=== PATIENT | female | born 1940 | race Caucasian/White ===

== ENCOUNTER 2016-10-14 13:57 | Emergency (ER) | payer OTHER, MEDICARE ==
[~2016-10-14] VITALS: Ht 165.1 cm; Wt 65.3 kg
--- NOTE | 2016-10-14 14:11 | ED GENERAL ADULT ---
History of Present Illness General Chief Complaint: ETOH/Drug Related Complaint Stated Complaint: PT IS WITHDRAWNING FROM RX Source: patient, old records Exam Limitations: no limitations Vital Signs & Intake/Output Vital Signs & Intake/Output Vital Signs Date Time Temp Pulse Resp B/P Pulse O2 O2 Flow FiO2 Ox Delivery Rate 10/14 1617 97.0 72 16 111/54 94 Room Air 10/14 1401 98.1 94 16 124/84 98 Room Air Allergies Coded Allergies: codeine (Severe, "SICK" 10/14/16) tetracycline (Severe, RASH 10/14/16) Reconcile Medications Adalimumab (Humira Pen) 40 MG/0.8 ML PEN.IJ.KIT 1 SYR SC Q2W BONES (Reported) Aripiprazole (Abilify) 2 MG TABLET 1 TAB PO DAILY MOOD DISORDER (Reported) Atorvastatin Calcium (Lipitor) 10 MG TABLET 1 TAB PO DAILY CHOLESTEROL ( Reported) Buspirone HCl 5 MG TABLET 1 TAB PO TID ANXIETY (Reported) Gabapentin 600 MG TABLET 1 TAB PO DAILY NERVE PAIN (Reported) Levothyroxine Sodium (Synthroid) 125 MCG TABLET 1 TAB PO DAILY THYROID ( Reported) Lorazepam (Ativan) 2 MG TABLET 1 TAB PO BID anxiety Lubiprostone (Amitiza) 24 MCG CAPSULE 1 CAP PO DAILY CONSTIPATION (Reported) Paroxetine HCl (Paxil) 20 MG TABLET 1 TAB PO DAILY DEPRESSION (Reported) Varenicline Tartrate (Chantix) 1 MG TABLET 1 TAB PO DAILY SMOKE CESSATION ( Reported) Triage Note: 76 Y/O FEMALE STATES "IM HERE BECAUSE I AM IN WITHDRAWAL ... TINGLING IN FEET AND HANDS .. EVALATED PULSE AND B/P ...". PT STATES HER MANAGER TECHNICAL DOCTOR HAS BEEN TAPERING HER OFF KLONOPIN (LAST DOSE MONDAY) AND PT HAS BEEN EXPERIENCING WITHDRAWAL SYMPTOMS SINCE. PT STATES SHE WAS TAPERED OFF KLONOPIN FROM 10/04 TO 10/12. PT HAS BEEN TAKING BUSPAR WITH NO RELIEF - LAST DOSE 1300. Triage Nurses Notes Reviewed? yes Onset: Gradual Duration: day(s): (2), constant Timing: recent history Injury Environment: home Severity: moderate Severity Numbers: 5 No Modifying Factors: none Associated Symptoms: ANXIETY HPI: 76 year old female with history of anxiety presents to the ER with her for evalution sent in by her pyschiatrist dr cam[place] in [place]. per the patient her doctor recently decided to taper her off the klonopin which she has been on for "years". that patient was on 2mg tid for 15 years per note from dr camargo and was tapered down by 0.5mg daily until she stopped all together on 10/12. the patient states since then she has been having palptiations and her bp was high in her doctors office today. the patient denies withdrawl before, no cp, cough, dyspnea, no abdmoninal pain, n/v/d. the patient reports to intermittent tingling in her hands and feet and reports all of these symptoms have started since stopping the klonopin all together 2 days ago. pt declining wishing to speak with crisis when offered she was switched over to buspar which she reports no improvement in sx. (RONEY SAVAGE) Past History Travel History Traveled to [place] past 21 day No Medical History Any Pertinent Medical History? see below for history Neurological: NONE EENT: NONE Cardiovascular: HIGH CHOLESTEROL Respiratory: NONE Gastrointestinal: NONE Hepatic: NONE Renal: NONE Musculoskeletal: rheumatoid arthritis Psychiatric: NONE Endocrine: hypothyroidism Blood Disorders: NONE Cancer(s): NONE VP GLOBAL/Reproductive: NONE Surgical History Surgical History: non-contributory Psychosocial History What is your primary language Iranian Tobacco Use: Current Daily Use Daily Tobacco Use Amount/Type: =< 4 Cigarettes daily Family History Hx Contributory? No (RONEY SAVAGE) Review of Systems Review of Systems Constitutional: Reports: see HPI. All Other Systems: Reviewed and Negative Comments Review of systems: See HPI, All other systems negative. Constitutional, no chills no fever, no malaise no weight loss HEENT: No visual changes no sore throat no congestion Cardiovascular: No chest pain , no palpitation , no orthopnea no ankle swelling Skin, no rashes, no change in skin Respiratory: No dyspnea no cough no sputum GI: No nausea no vomiting, no diarrhea, no bloating : No dysuria No hematuria, no frequency, Muscle skeletal: No joint pain, no joint swelling, no back pain, no neck pain, Neurologic: No numbness no confusion, no headache Psych: No stress anxiety no depression,. Heme/endocrine: No bruising no bleeding no polyuria no polydipsia Immunology: No lymphadenopathy, (RONEY SAVAGE) Physical Exam Physical Exam General Appearance: well developed/nourished, no apparent distress, alert, awake Comments: Well-developed well-nourished person in no acute distress HEENT: Normal EENT exam; PERRL, EOMI, . HEAD is atraumatic. moist mucous membranes. Neck: Supple, no lymphadenopathy, normal range of motion Back: Nontender, no CVA tenderness. Full range of motion Cardiovascular: Regular rate and rhythms no murmurs rubs or gallops Respiratory:No respiratory distress. Patient speaking in full complete sentences. Breath sounds clear to auscultation bilaterally: NO W/R/R Abdomen: Soft, nontender nondistended, no appreciable organomegaly Extremity: No edema, full range of motion of extremities Neuro: Alert oriented x3, motor sensory normal, There were no obvious focal neurologic abnormalities. Skin: No appreciable rash on exposed skin, skin is warm and dry. Psych: Mood and affect is normal, memory and judgment is normal. Core Measures ACS in differential dx? No CVA/TIA Diagnosis: No Severe Sepsis Present: No Septic Shock Present: No (PAPO SEXTON,RONEY) Progress Differential Diagnoses I considered the following diagnoses in my evaluation of the patient: benzo withdrawl, electrolyte abnormality, dehydration, thyroid abnormality Plan of Care: Orders Procedure Date/time Status THYROID STIMULATING HORMONE 10/14 1448 Complete COMPREHENSIVE METABOLIC PANEL 10/14 1448 Complete CBC WITHOUT DIFFERENTIAL 10/14 1448 Complete EKG 10/14 1448 Active Current Medications Sig/Verenice Start time Last Medication Dose Stop Time Status Admin Lorazepam 2 MG ONCE ONE 10/14 1500 CAN (Ativan) 10/14 1501 Laboratory Tests 10/14/16 1455: Anion Gap 13, Estimated GFR > 60, BUN/Creatinine Ratio 15.7, Glucose 103 H, Calcium 9.8, Total Bilirubin 0.5, AST 25, ALT 30, Alkaline Phosphatase 76, Total Protein 7.1, Albumin 4.2, Globulin 2.9, Albumin/Globulin Ratio 1.4, TSH 4.710 H , CBC w Diff NO MAN DIFF REQ, RBC 4.36, MCV 93.8, MCH 32.1 H, RDW 13.4, MPV 7.8 , Gran % 65.7, Lymphocytes % 27.2, Monocytes % 6.5, Eosinophils % 0.2, Basophils % 0.4, Absolute Granulocytes 3.9, Absolute Lymphocytes 1.6, Absolute Monocytes 0.4, Absolute Eosinophils 0, Absolute Basophils 0, PUBS MCHC 34.2 labs ordered, d/w the pt and her plan of care, pt decling klonopin however requesting medicatino for her anxiety, after discussion of options pt medicated with ativan 1mg po case d/w dr hanna 1625 d/w the pt and her at length her lab results need for f/u with her pysc onmonday advised, return at anytime sooner with any concerns. pt reports improvement in tingilng in hands with ativan. they feel comfortable withp lanm, cleared for dc (RONEY SAVAGE) Initial ED EKG: nsr at 80, normal axis, no acute st seg changes (RONEY SAVAGE) Departure Departure Time of Disposition: 1614 Disposition: HOME OR SELF CARE Condition: Stable Clinical Impression Primary Impression: Anxiety Additional Instructions: follow up with your psychiatrist next week to see if you can be seen sooner then your appointment in 2 weeks. ativan as directed for your anxiety this was sent to your pharmacy Departure Forms: Customer Survey General Discharge Information Prescriptions: Current Visit Scripts Lorazepam (Ativan) 1 TAB PO BID #14 TAB (RONEY SAVAGE) PA/REGIONAL ENVIRONMENTAL MANAGER Co-Sign Statement Statement: ED Attending supervision documentation- [X] I saw and evaluated the patient. I have also reviewed all the pertinent lab results and diagnostic results. I agree with the findings and the plan of care as documented in the PA's/REGIONAL ENVIRONMENTAL MANAGER's documentation. [X] I have reviewed the ED Record and agree with the PA's/REGIONAL ENVIRONMENTAL MANAGER's documentation. [] Additions or exceptions (if any) to the PAs/REGIONAL ENVIRONMENTAL MANAGER's note and plan are summarized below: [] (AMRITA CARO,RAYNA) Critical Care Note Critical Care Note Critical Care Time: non-applicable (RONEY SAVAGE)
[2016-10-14] MEDS ORDERED: AMITIZA24 MC1 PO (15:00)
[2016-10-14] MEDS ORDERED: SYNTHROID125 MCG PO (15:01)
[2016-10-14] MEDS ORDERED: PAXIL20 M1 PO (15:01)
[2016-10-14] MEDS ORDERED: LIPITOR10 M1 PO (15:02)
[2016-10-14] MEDS ORDERED: BUSPIRONE HCL5 M1 PO (15:02)
[2016-10-14] MEDS ORDERED: GABAPENTIN600 M1 PO (15:03)
[2016-10-14] MEDS ORDERED: HUMIRA PEN40 MG/0.8 SC (15:04)
[2016-10-14] MEDS ORDERED: CHANTIX1 MG PO (15:05)
[2016-10-14] MEDS ORDERED: ABILIFY2 MG PO (15:06)
[2016-10-14 15:10] LABS: ABSOLUTE BASOPHIL COUNT 0 /CUMM (0.0-0.2); ABSOLUTE EOSINOPHIL COUNT 0 /CUMM (0.0-0.7); ABSOLUTE GRANULOCYTE CT 3.9 /CUMM (1.4-6.5); ABSOLUTE LYMPH COUNT 1.6 /CUMM (1.2-3.4); ABSOLUTE MONOCYTE COUNT 0.4 /CUMM (0.10-0.60); BASOPHIL % 0.4 % (0.0-2.0); EOSINOPHIL % 0.2 % (0-5); GRANULOCYTE % 65.7 % (42.2-75.2); HEMATOCRIT 40.9 % (37-47); MEAN CORPUSCULAR HGB 32.1 PG (27.0-31.0); MEAN CORPUSCULAR HGB CONC 34.2 G/DL (33.0-37.0); MEAN CORPUSCULAR VOLUME 93.8 FL (81.0-99.0); MEAN PLATELET VOLUME 7.8 FL (7.4-10.4); PLATELET COUNT 313 /CUMM (130-400); RBC DISTRIBUTION WIDTH 13.4 % (11.5-14.5); RED BLOOD CELL CT 4.36 /CUMM (4.20-5.40)
[2016-10-14] MEDS ORDERED: ATIVAN2 MG PO (16:16)
[2016-10-14 16:17] VITALS: BP 111/54
== END 2016-10-14 16:22 ==
LOC: ERH 13:57
PROVIDERS: Physician Assistant Medical
DX: F41.9 Anxiety disorder, unspecified (principal); R20.2 Paresthesia of skin
CPT/HCPCS: 93005; 93010